=== PATIENT | female | born 1990 | race Caucasian/White ===

== ENCOUNTER 2016-05-27 08:07 | Inpatient (IN) ==
[2016-05-27 09:11] LABS: Basophils % 0.1 %; Eosinophils % 0.2 %; Hematocrit 37.3 % (35.3-44.9); Hemoglobin 12.7 g/dL (11.5-15.4); Immature Granulocytes % 0.9 % (0-4); Lymphocytes # 1.5 K/mcL (0.6-4.6); Lymphocytes % 7.7 %; Mean Corpuscular Hemoglobin 30.7 pg (28.0-33.3); Mean Corpuscular Volume 90.1 fL (83.0-100.0); Monocytes # 0.7 K/mcL (0.0-1.3); Monocytes % 3.3 %; Neutrophils # 17.4 K/mcL (1.6-8.9); Platelet Count 227 K/mcL (140-400); Red Blood Count 4.14 M/mcL (3.82-4.97); Red Cell Distribution Width 14.5 % (11.5-14.5); Segmented Neutrophils % 87.8 %
[2016-05-27 16:19] LABS: Basophils % 0.2 %; Eosinophils % 0.1 %; Hemoglobin 13.1 g/dL (11.5-15.4); Immature Granulocytes % 0.9 % (0-4); Lymphocytes # 1.4 K/mcL (0.6-4.6); Lymphocytes % 6.9 %; Mean Corpuscular HGB Conc 33.6 g/dL (31.6-35.5); Mean Corpuscular Hemoglobin 30.5 pg (28.0-33.3); Mean Corpuscular Volume 90.9 fL (83.0-100.0); Mean Platelet Volume 11.7 fL (9.4-12.4); Monocytes # 0.2 K/mcL (0.0-1.3); Monocytes % 1.1 %; Neutrophils # 17.9 K/mcL (1.6-8.9); Platelet Count 215 K/mcL (140-400); Red Blood Count 4.29 M/mcL (3.82-4.97); Red Cell Distribution Width 14.3 % (11.5-14.5); Segmented Neutrophils % 90.8 %
[2016-05-27 16:31] LABS: Alanine Aminotransferase 8 Units/L (0-55); Aspartate Amino Transferase 19 Units/L (5-34); BUN/Creatinine Ratio 9 (6-26); Blood Urea Nitrogen 7 mg/dL (7-20); Lactate Dehydrogenase 282 Units/L (159-327); Uric Acid 5.7 mg/dL (2.6-6.0); eGFR For African Americans > 60 (> 60); eGFR For Non-African Americans > 60 (> 60)
[2016-05-28 04:27] LABS: Basophils % 0.2 %; Eosinophils # 0.1 K/mcL (0.0-0.6); Eosinophils % 0.8 %; Hematocrit 33.6 % (35.3-44.9); Immature Granulocytes % 0.7 % (0-4); Lymphocytes # 2.3 K/mcL (0.6-4.6); Lymphocytes % 12.5 %; Mean Corpuscular HGB Conc 33.3 g/dL (31.6-35.5); Mean Corpuscular Hemoglobin 30.9 pg (28.0-33.3); Mean Corpuscular Volume 92.8 fL (83.0-100.0); Mean Platelet Volume 12.1 fL (9.4-12.4); Monocytes # 0.7 K/mcL (0.0-1.3); Monocytes % 3.9 %; Neutrophils # 14.8 K/mcL (1.6-8.9); Platelet Count 185 K/mcL (140-400); Red Blood Count 3.62 M/mcL (3.82-4.97); Red Cell Distribution Width 14.3 % (11.5-14.5); Segmented Neutrophils % 81.9 %
[2016-05-28 04:43] LABS: Hemoglobin 11.2 g/dL (11.5-15.4)
[2016-05-28 08:04] VITALS: BP 120/79
== END 2016-05-28 11:59 | disposition home or self-care (01) | DRG 560 ==
LOC: 1NENULAB → OBSVTOIN 08:07 → 1NENUOBS 13:32
PROVIDERS: ADMIT Obstetrics & Gynecology; ATTEND Obstetrics & Gynecology

== ENCOUNTER → 2017-11-09 18:18 | Observation (INO) ==
[2017-11-09 17:35] LABS: Basophils # 0.1 K/mcL (0.0-0.2); Basophils % 0.4 %; Eosinophils # 0.3 K/mcL (0.0-0.6); Eosinophils % 2.6 %; Hematocrit 35.4 % (35.3-44.9); Hemoglobin 12.1 g/dL (11.5-15.4); Lymphocytes # 2.2 K/mcL (0.6-4.6); Lymphocytes % 16.7 %; Mean Corpuscular HGB Conc 34.2 g/dL (31.6-35.5); Mean Corpuscular Hemoglobin 31.4 pg (28.0-33.3); Mean Corpuscular Volume 91.9 fL (83.0-100.0); Mean Platelet Volume 10.3 fL (9.4-12.4); Monocytes # 0.8 K/mcL (0.0-1.3); Monocytes % 6.3 %; Neutrophils # 9.3 K/mcL (1.6-8.9); Platelet Count 273 K/mcL (140-400); Red Blood Count 3.85 M/mcL (3.82-4.97); Red Cell Distribution Width 14.2 % (11.5-14.5)
[2017-11-09 17:37] LABS: Bilirubin,Urine Negative (Negative); Blood,Urine Trace (Negative); Clarity,Urine Cloudy (Clear); Color,Urine Yellow (Yellow); Glucose,Urine (UA) Normal (Normal); Ketones,Urine Negative (Negative); Leukocyte Esterase,Urine Large (Negative); Nitrite,Urine Negative (Negative); PH,Urine 6.5 pH Units (5.0-8.0); Protein,Urine Negative (Neg-Trace); Specific Gravity,Urine 1.012 (1.010-1.025); Urobilinogen,Urine Normal (Normal)
[2017-11-09 17:39] LABS: Bacteria,Urine Few per hpf (None-Few); Hyaline Casts,Urine None Seen per lpf (None-Few); Squamous Epithelial Cell,Urine Many per lpf (None-Few); WBC,Urine 50-100 per hpf (0-3)
[2017-11-09 17:49] LABS: Alanine Aminotransferase 6 Units/L (7-52); Aspartate Amino Transferase 11 Units/L (13-39); BUN/Creatinine Ratio 16 (6-26); Blood Urea Nitrogen 7 mg/dL (6-20); Lactate Dehydrogenase 117 Units/L (140-271); Uric Acid 4.1 mg/dL (2.3-7.6); eGFR For Non-African Americans > 60 (> 60)
[2017-11-09 17:50] LABS: Amphetamine Screen,Urine Negative ng/mL (Cutoff=1000); Barbiturate Screen,Urine Negative ng/mL (Cutoff=200); Benzodiazepines Screen,Urine Negative ng/mL (Cutoff=200); Cannabinoid Screen,Urine Negative ng/mL (Cutoff = 50); Cocaine Screen,Urine Negative ng/mL (Cutoff= 300); Opiate Screen,Urine Negative ng/mL (Cutoff=300); Phencyclidine Screen,Urine Negative ng/mL (Cutoff=25); Protein/Creatinine Ratio,Urine 0.14 mg/mg (0.00-0.20)
[2017-11-09 17:56] LABS: RBC,Urine 0-3 per hpf (0-3)
--- NOTE | 2017-11-23 10:39 | OB/GYN Progress Note ---
Date of Encounter: 11/23/17 Time of Encounter: 10:00 - Assessment and Plan (1) 31 weeks gestation of Status: Acute Follow up with OB as scheduled PTL precautions given Discharge home (2) NST (non-stress test) reactive on surveillance Status: Acute (3) Headache in Status: Acute tylenol prn Qualifiers: Trimester: third trimester Qualified Code(s): O26.893 - Other specified related conditions, third trimester; R51 - Headache Subjective - Subjective Interval history: Ms. Bowie presents for PIH evaluation. She endorses good fm and denies ctx, lof, vb. Antepartum ROS: movement normal, no loss of fluid, no vaginal bleeding, no contractions Objective - Exam FHR: category 1 Auscultation: bilateral: normal Abdomen: Present: normal appearance, soft, gravid Uterus: Present: normal, firm - Labs Labs: Abnormal lab results WBC 13.1 K/mcL (4.3-11.1) H 11/09/17 16:46 Neutrophils # 9.3 K/mcL (1.6-8.9) H 11/09/17 16:46 Creatinine 0.44 mg/dL (0.60-1.20) L 11/09/17 16:46 AST 11 Units/L (13-39) L 11/09/17 16:46 ALT 6 Units/L (7-52) L 11/09/17 16:46 Lactate Dehydrogenase 117 Units/L (140-271) L 11/09/17 16:46 Urine Clarity Cloudy (Clear) A 11/09/17 16:46 Urine Blood Trace (Negative) H 11/09/17 16:46 Ur Leukocyte Esterase Large (Negative) H 11/09/17 16:46 Urine Microscopic WBC 50-100 per hpf (0-3) H 11/09/17 16:46 Ur Squamous Epith Cells Many per lpf (None-Few) H 11/09/17 16:46 Ur Culture Indicated? NO. (NO) A 11/09/17 16:46 Urine Total Protein 16 mg/dL (1-14) H 11/09/17 16:46
== END | disposition home or self-care (01) ==
LOC: 1NENULAB
PROVIDERS: ADMIT Obstetrics & Gynecology; ATTEND Obstetrics & Gynecology

== ENCOUNTER → 2017-12-01 14:20 | Observation (INO) ==
--- NOTE | 2017-12-01 12:56 | OB/GYN History & Physical ---
Date of Encounter: 12/01/17 Time of Encounter: 12:46 Assessment and Plan (1) 33 weeks gestation of Current visit: Yes Status: Acute (2) Opiate dependence, continuous Current visit: No Status: Acute (3) complicated by subutex maintenance, antepartum Current visit: No Status: Acute (4) Incompetent cervix in , antepartum Current visit: Yes Status: Acute Cerclage in place. No contractions. No bleeding. (5) premature rupture of membranes (PPROM) with unknown onset of labor Current visit: Yes Status: Acute Plan for transfer to [facility]. PPROM diagnosed with positive nitrazine and positive fern. Amoxicillin started for GBS ppx. GBS culture collected prior to starting antibiotics. Pt not currently francine. Will hold tocolysis for now. (6) Tobacco abuse Current visit: Yes Status: Acute History of Present Illness Chief complaint: leaking fluid HPI: Ms. Bowie is a 27 year old female presenting at 33w3d with and EDC of 01/16/18 by 9 week US. She reports a large gush of fluid at 11:49pm last evening. She reports ongoing leaking since that time. SHe denies contractions or bleeding. Good FM. Prior pregnancies all vaginal deliveries at 25 weeks and 36 weeks x3. Her most recent child when her bassinet broke and crushed the child at 6 months of age. Pt has custody of only one child and is on probation for drug paraphernalia. This complicated by cocaine and opioid use for which pt is on subutex, previous pregnancies with IUGR, tobacco use, incompetent cervix for which pt has cerclage, noncompliance with care. 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 Blood type O positive Rubella and varicella non-immune HIV, hep B, Hep C, syphillis, gonorrhea, chlamydia negative GBS unknown Past Med Surg Social Fam HX - Past Medical History Medical history: other Additional medical history: anemia Psychiatric history: anxiety, depression - Past Surgical History Surgical History: appendectomy, other Additional surgical history: cervical cerclage, right ring finger partial amputation - Social History Smoking Status: Current every day smoker Packs per day: 1 Smokeless Tobacco Status: No Alcohol use: none Drug use: cocaine, opiates - Family History Father Living Status: Still Living Hx Family Cardiac Disorders: No Hx Family Respiratory Disorders: Yes (COPD) Hx Family Cancer: No Hx Family GI Disorders: No Hx Family Endocrine Disorder: No Hx Family Neuromuscular Disorders: No Hx Family Neurologic Disorders: No Hx Family HEENT Disorders: No Hx Family Autoimmune Disorders: No Obstetrical History - Pregnancies : 7 Para: 4 Term: 0 : 4 Ab's: 2 Livin Medications and Allergies Buprenorphine HCl [Subutex] 8 mg SL BID tab.subl 05/28/16 [Rx] hydrOXYzine HCl [Hydroxyzine HCl] 1 tab PO BID 07/16/17 [History] Hydroxyprogesterone Caproate [[place]] 250 mg IM Q1W 11/09/17 [History] Loratadine [Claritin] 10 mg PO DAILY 12/01/17 [History] 3 Allergy/AdvReac Type Severity Reaction Status Date / Time gabapentin Allergy Hives Verified 06/09/17 16:49 morphine Allergy Hives Verified 05/27/16 08:24 Review of System OB All systems PM: reviewed and no additional remarkable complaints except as stated Exam - Constitutional Constitutional: well developed, well nourished, no acute distress - HEENT HEENT: Mucus Membranes Moist - Lungs Respiratory exam: CTAB - Cardiovascular Cardiovascular exam: RRR - Abdomen Abdomen: Present: gravid, non tender - Extremities Extremities exam: normal inspection - Vulva Vulva: bilateral: normal - Anus/Rectum Anus/Rectum: Present: normal perianal skin - Comments Comments: SSE with negative pooling, positive nitrazine, positive fern Results All other labs normal.
[2017-12-01 13:21] LABS: Basophils # 0.1 K/mcL (0.0-0.2); Basophils % 0.4 %; Eosinophils # 0.3 K/mcL (0.0-0.6); Eosinophils % 1.7 %; Hematocrit 34.9 % (35.3-44.9); Hemoglobin 11.8 g/dL (11.5-15.4); Immature Granulocytes % 2.8 % (0-4); Lymphocytes # 2.4 K/mcL (0.6-4.6); Lymphocytes % 15.2 %; Mean Corpuscular HGB Conc 33.8 g/dL (31.6-35.5); Mean Corpuscular Hemoglobin 30.6 pg (28.0-33.3); Mean Corpuscular Volume 90.6 fL (83.0-100.0); Mean Platelet Volume 10.3 fL (9.4-12.4); Monocytes % 6.1 %; Neutrophils # 11.5 K/mcL (1.6-8.9); Platelet Count 281 K/mcL (140-400); Red Blood Count 3.85 M/mcL (3.82-4.97); Red Cell Distribution Width 14.2 % (11.5-14.5); Segmented Neutrophils % 73.8 %
[2017-12-01 13:34] LABS: Amphetamine Screen,Urine Negative ng/mL (Cutoff=1000); Barbiturate Screen,Urine Negative ng/mL (Cutoff=200); Benzodiazepines Screen,Urine Negative ng/mL (Cutoff=200); Cannabinoid Screen,Urine Negative ng/mL (Cutoff = 50); Cocaine Screen,Urine Negative ng/mL (Cutoff= 300); Opiate Screen,Urine Negative ng/mL (Cutoff=300); Phencyclidine Screen,Urine Negative ng/mL (Cutoff=25)
[~2017-12-01 14:20] MED LIST: Ampicillin 2 GM in 0.9 % Sodium Chloride Mini Bag 100 ML IVPB ONE; Ringers Solution, Lactated 1,000 ML IVC SCH; Ringers Solution, Lactated 1,000 ML ONE
== END | disposition critical access hospital (66) ==
LOC: 1NENULAB
PROVIDERS: ADMIT Obstetrics & Gynecology; ATTEND Obstetrics & Gynecology